=== PATIENT | male | born 2000 | race Hispanic/Latino ===

== ENCOUNTER 2021-06-12 10:48 | Emergency (ER) | payer OTHER ==
[2021-06-12] MEDS ORDERED: Ibuprofen 800 MG TAB ONE (11:32)
[2021-06-12] MEDS ORDERED: Dexamethasone 4 mg/ml Vial ONE (11:32)
== END 2021-06-12 12:28 | disposition home or self-care (01) ==
LOC: ERS 10:48
DX: H60.503 Unspecified acute noninfective otitis externa, bilateral (principal)
CPT/HCPCS: 36416; 99283; J1100

== ENCOUNTER 2021-11-28 16:35 | Emergency (ER) | payer OTHER ==
[2021-11-28] MEDS ORDERED: Ketorolac Tromethamine 30 MG/ML VIAL ONE (17:46)
== END 2021-11-28 19:07 | disposition home or self-care (01) ==
LOC: ERS 16:35
DX: S66.911A Strain of unspecified muscle, fascia and tendon at wrist and hand level, right hand, initial encounter (principal); X58.XXXA Exposure to other specified factors, initial encounter
CPT/HCPCS: 29125; 96372; J1885

== ENCOUNTER 2022-01-20 19:14 | Emergency (ER) | payer OTHER | END 2022-01-20 21:38 | disposition home or self-care (01) | LOC: ERS 19:14 | DX: B34.9 Viral infection, unspecified (principal); Z20.822 Contact with and (suspected) exposure to COVID-19 | CPT/HCPCS: 87804; 99283; U0003; U0005 ==

== ENCOUNTER 2023-11-13 07:38 | Emergency (ER) | payer OTHER, SELFPAY ==
[2023-11-13 08:36] LABS: %Basophils 0.8 % (0.0-1.0); %Eosinophils 2.5 % (0.0-10.0); %Lymphocytes 34.4 % (21.0-51.0); %Monocytes 11.5 % (0.0-10.0); %Neutrophils 50.6 % (42.0-75.0); Hematocrit 43.7 % (42.0-52.0); Hemoglobin 15.3 g/dL (14.0-18.0); Mean Corpuscular Hemoglobin 28.3 pg (27.0-31.0); Mean Corpuscular Volume 80.8 fL (78.0-98.0); Mean Platelet Volume 9.8 fL (7.4-10.4); Platelet Count 314 10x3/uL (130-400); Red Blood Cell (RBC) Count 5.41 mill/uL (4.70-6.10)
[2023-11-13 09:41] LABS: ALT (SGPT) 48 U/L (8-55); AST (SGOT) 25 U/L (5-34); Albumin 4.1 g/dL (3.5-5.0); Alkaline Phosphatase 71 U/L (40-110); Anion Gap 16 mmol/L (10-20); BUN (Urea Nitrogen) 13 mg/dL (8.9-20.6); Bilirubin, Total 0.5 mg/dL (0.2-1.2); Calc. Creatinine Clearance 0 mL/min (70-130); Calcium 9.7 mg/dL (7.8-10.44); Carbon Dioxide 24 mmol/L (22-29); Chloride 102 mmol/L (98-107); Estimated GFR 96; Globulin 4.3 g/dL (2.4-3.5); Glucose 101 mg/dL (70-105); Potassium 3.6 mmol/L (3.5-5.1); Protein, Total 8.4 g/dL (6.0-8.3); Sodium 138 mmol/L (136-145)
[2023-11-13] MEDS ORDERED: Iopamidol-370 76% 500 ML MDV (1 ML CHARGE) ONE (10:51)
== END 2023-11-13 10:05 | disposition home or self-care (01) ==
LOC: ERS 07:38
DX: R59.0 Localized enlarged lymph nodes (principal)
CPT/HCPCS: 36415; 70491; 80053; 83605; 85025; Q9967